=== PATIENT | female | born 1950 | race Caucasian/White ===

== ENCOUNTER 2016-06-04 12:01 | Emergency (ER) | payer MEDICAID ==
[~2016-06-04] VITALS: Ht 154.9 cm; Wt 73.8 kg
[2016-06-04 12:16] VITALS: BP 129/74; PULSE 66; RESP 16; TEMP 98; O2SAT 96
[2016-06-04] MEDS ORDERED: FLUT1SPR5 EACH NARE (12:24)
[2016-06-04] MEDS ORDERED: ALBUAER3 INH ×2 (12:24→12:45)
[2016-06-04] MEDS ORDERED: IPRASOL INH ×2 (12:24→12:45)
--- NOTE | 2016-06-04 12:43 | PD ---
HPI Chief Complaint: Oral / Dental Pain or Problem Time Seen by Provider: 12:40 Travel History International Travel<30 days: No Contact w/Intl Traveler<30days: No Traveled to known affect area: No History of Present Illness HPI Patient comes in requesting a refill of her COPD medication as well as possible abscessed tooth. Patient states she's been having pain in her left lower molar for approximately 2 months however is became worse over the past several days. Patient states she's tried putting swabs of mouthwash on it with no improvement of her symptoms. Pain is worse with eating or drinking. Denies any radiation of the pain. Denies any fevers, difficulty swallowing, chest pain, breath, neck pain, numbness or tingling anywhere, or headaches. PFSH Past Medical History COPD: Yes Respiratory: Yes (COPD) ?: Not Social History Alcohol Use: Yes Tobacco Use: No Substance Use: No Allergies-Medications (Allergen,Severity, Reaction): Coded Allergies: Penicillin (Verified Allergy, Severe, PINS AND NEEDLES WITH SWELLING, 06/04) Reported Meds & Prescriptions Reported Meds & Active Scripts Active Naprosyn (Naproxen) 500 Mg Tab 500 Mg PO Q12HR PRN Clindamycin (Clindamycin HCl) 300 Mg Cap 300 Mg PO Q6H 7 Days Proair Hfa 8.5 GM Inh (Albuterol Sulfate) 90 Mcg/Act Aer 1 Puff INH Q4H PRN 108 mcg/actuation Duoneb (Ipratropium-Albuterol Neb) 0.5-2.5 Mg/3 Ml Neb 1 Nebule INH Q4HR NEB Reported Flonase Allergy Relief Nasal [place] (Fluticasone Nasal [place]) 50 Mcg/Act [place] 50 Mcg EACH NARE BID Review of Systems Except as stated in HPI: all other systems reviewed are Neg Physical Exam Narrative GENERAL: Well-developed, overly nourished, in no acute distress, and non-ill appearing. SKIN: Warm and dry. HEAD: Atraumatic. Normocephalic. EYES: Pupils equal and round. EOMI. No scleral icterus. No injection or drainage. ENT: No nasal bleeding or discharge. Mucous membranes pink and moist. Tympanic membranes are pearly [place] bilaterally. Posterior pharynx is nonerythematous without exudate. Uvula is midline. Patient has poor dentition with no visible or palpable abscess reports tenderness to palpation over left lower molar. Floor of the mouth, submandibular, submental are all soft palpation. NECK: Trachea midline. No cervical lymphadenopathy. Supple. No nuclear rigidity. RESPIRATORY: No accessory muscle use. No respiratory distress. MUSCULOSKELETAL: No obvious deformities. No clubbing. No cyanosis. No edema. Full range of motion. NEUROLOGICAL: Awake and alert. No obvious cranial nerve deficits. Motor grossly within normal limits. Normal speech. PSYCHIATRIC: Appropriate mood and affect; insight and judgment normal. Data Data Last Documented VS Vital Signs Date Time Temp Pulse Resp B/P Pulse Ox O2 Delivery O2 Flow Rate FiO2 06/04/16 12:16 98.0 66 16 129/74 96 MDM Medical Decision Making Medical Screen Exam Complete: Yes Emergency Medical Condition: Yes Differential Diagnosis Dental abscess, dental infection, dentalgia, medication refill, other Narrative Course The patient presented with dental pain. There is no fever. There is no significant facial swelling or evidence of cellulitis. There is poor dentition but no evidence of drainable abscess at this time. There is no evidence of significant deep or invading abscess at this time. The patient will be placed on antibiotics and pain medication. The patient was instructed to follow up with a dentist. The patient was given the dental referral sheet. Warnings were discussed with the patient regarding worsening of infection. The patient is to return if pain worsens, develops progressive swelling or facial redness or fever. The patient agrees with plan. Patient in no obvious distress upon re-evaluation. Patient was asked if they wanted to speak to my attending, which the patient did not wish to do at this time. Any questions/concerns in reference to patient diagnosis/condition discussed and clarified prior to patient's discharge. Reinforced sheer importance of close follow up with patient's primary physician or primary care clinic. Instructed patient to return to ED immediately, if symptoms return/ worsen. Pt showed understanding of above instructions. Further instructions and recommendations were detailed in discharge paperwork. Pt ambulated without difficulty out of ED at discharge. Diagnosis Primary Impression: Dental infection Additional Impression: Medication refill Patient Instructions: Dental Abscess (GEN), Dental Caries (DC), General Instructions, Medication Refill, ED Additional Instructions: Follow-up with your primary care physician and dentist as soon as possible. Rinse mouth with warm salt water gargles. Take all medication as prescribed. Return to the emergency department if symptoms get worse. Med/Other Pt SpecificInfo: Prescription(s) given Scripts Naproxen (Naprosyn)500 Mg [id number] Mg PO Q12HR PRN (PAIN SCALE 1 TO 10) #14 TAB Ref 0 Prov:Alexis Denis MD 06/04/16 Clindamycin 300 Mg [id number] Mg PO Q6H 7 Days Ref 0 Prov:Alexis Denis MD 06/04/16 Albuterol 8.5 GM Inh (Proair Hfa 8.5 GM Inh)90 Mcg/Act Aer1 Puff INH Q4H PRN ( SHORTNESS OF BREATH) #1 INHALER Ref 0 108 mcg/actuation Prov:Alexis Denis MD 06/04/16 Ipratropium-Albuterol Neb (Duoneb)0.5-2.5 Mg/3 Ml Neb1 Nebule INH Q4HR NEB #1 BOX Ref 0 Prov:Alexis Denis MD 06/04/16 Disposition: 01 DISCHARGE HOME Condition: Stable Levon Gómez Jun 04, 2016 12:43
[2016-06-04] MEDS ORDERED: NAPR500 PO (12:45)
[2016-06-04] MEDS ORDERED: CLIN1CAP6 PO (12:45)
== END 2016-06-04 12:53 | disposition home or self-care (01) ==
LOC: PHEFT 12:01
DX: K04.7 Periapical abscess without sinus (principal); Z76.0 Encounter for issue of repeat prescription
CPT/HCPCS: 99282